=== PATIENT | male | born 1955 | race Caucasian/White ===

== ENCOUNTER 2019-04-06 13:48 | Day surgery (SDC) | payer MEDICARE, OTHER ==
[2019-04-06] MEDS ORDERED: Xylocaine 1% Vial 30 ML PF IJ ONE (13:49)
[2019-04-06] MEDS ORDERED: Depo-Medrol 40 MG/ML IM ONE (13:49)
[2019-04-06] MEDS ORDERED: Sodium Chloride 0.9(Preservative Free) 10 ML IJ ONE (13:49)
--- NOTE | 2019-04-06 22:47 | XRAY ---
Indication: L4-L5 MARTIR. Intraoperative fluoroscopy was provided for 21 seconds. 2 digital spot images submitted for interpretation demonstrates midline posterior needle tip projecting just posterior to the L4-L5 interspace. Correlate with intraoperative findings/report. Lateral view demonstrates incidental orthopedic fixation plates/screws.
--- NOTE | 2019-04-06 23:01 | XRAY ---
21 seconds of fluoroscopy was used in surgery for a L4-L5 lumbar MARTIR.
== END 2019-04-06 16:46 | disposition home or self-care (01) ==
LOC: SDC-PAIN 13:48
PROVIDERS: ATTEND Psychiatry & Neurology Pain Medicine
DX: M54.16 Radiculopathy, lumbar region (principal); E11.9 Type 2 diabetes mellitus without complications; I10 Essential (primary) hypertension; I25.10 Atherosclerotic heart disease of native coronary artery without angina pectoris; G62.9 Polyneuropathy, unspecified; F41.8 Other specified anxiety disorders; J60 Coalworker's pneumoconiosis; Z79.899 Other long term (current) drug therapy
CPT/HCPCS: 62321; 72100; 77003; 82962; J1030; J2001; Q9966